=== PATIENT | male | born 2000 | race Caucasian/White ===

== ENCOUNTER 2023-03-17 07:26 | Outpatient (CLI) | payer BC, SELFPAY ==
[2023-03-17 11:07] LABS: Semen Viscosity Increased (Not Increa.); Volume Semen 3.5 mL (1.5-5.0)
[2023-03-17 11:08] LABS: Liquefaction Semen Complete in 30 min. (<30 minutes); Semen Color Opaque (Grey-opaque); Semen Immotility 15 %; Semen Non-Progressive Motility 35 %; Semen Progressive Motility 50 % (>32); Semen Total Motility 85 (>40% (PM+NP)); pH Semen 8.5 (7.2-8.0)
[2023-03-17 11:10] LABS: Semen Morphology Result to Follow
[2023-03-22 22:18] LABS: Fructose, Semen 406 mg/dL (150-600)
== END 2023-03-17 07:27 | disposition home or self-care (01) ==
LOC: CHSLAB 07:32
PROVIDERS: PCP Nurse Practitioner; Visit Provider Nurse Practitioner
DX: N46.9 Male infertility, unspecified (principal)
CPT/HCPCS: 82757; 88160; 89320